=== PATIENT | male | born 1980 | race Caucasian/White ===

== ENCOUNTER 2019-08-21 05:43 | Emergency (ER) | payer OTHER ==
[~2019-08-21] VITALS: Ht 180.3 cm; Wt 81.6 kg
[2019-08-21 05:50] VITALS: BP 147/70
--- NOTE | 2019-08-21 05:50 | NUR ---
TO BED # 09 AMBULATORY
--- NOTE | 2019-08-21 06:01 | NUR ---
PT C/O LT ARM AND SHOULDER PAIN X3 DAY. NUMBNESS TO FINGERS X1 DAY. DENIES TRAUMA. +CMS. CAP REFILL <3 SEC. PT STATES PAIN RELIEF WHEN ARM IS RAISED ABOVE HEAD. SEEN AT [place] YESTERDAY AND DIAGNOSED WITH MUSCLE SPASM, PRESCRIBED METHOCARBAMOL AND NAPROXEN, PT STATES NO RELIEF AFTER USING MEDICATION. NO VISIBLE DEFORMITIES TO LT EXTREMITY. DENIES DRUG AND ALCOHOL USE. VSS. MEDHX: DENIES ALLERGIES: DENIES
[2019-08-21] MEDS ORDERED: KETOROLAC 30 MG/ML VIAL IM ONE (06:10)
--- NOTE | 2019-08-21 06:40 | NUR ---
DURING BLOOD DRAW PTS PUPILS DILATED, BECAME DIAPHORETIC, AND PALE. PT BECAME LETHARGIC, AROUSABLE TO NAME. MADE AWARE.
--- NOTE | 2019-08-21 06:42 | NUR ---
DR COLON AT BEDSIDE PERFORMING ULTRASOUND
--- NOTE | 2019-08-21 06:46 | NUR ---
XRAY AT BEDSIDE.
[2019-08-21 07:05] LABS: CARBON DIOXIDE 25.7 mmol/L (21-32); CREATININE 1.1 mg/dL (0.7-1.3); POTASSIUM 3.7 mmol/L (3.5-5.1)
--- NOTE | 2019-08-21 07:12 | NUR ---
SHIFT REPORT FORM EUNICE DONAHUE. ASSUMED CARE OF PT. PT RESTING IN BED.
[2019-08-21 07:14] LABS: HEMOGLOBIN 17.1 g/dL (12.0-18.0); MEAN CORPUSCULAR HEMOGLOBIN 32 pg (27-31); MEAN CORPUSCULAR HGB CONC 34 g/dL (33-37); MEAN CORPUSCULAR VOLUME 92.6 fL (80-94); PLATELET COUNT (AUTO) 246 K/uL (140-450); RED CELL DISTRIBUTION WIDTH 13.4 % (11.6-13.7)
[2019-08-21 07:27] LABS: LYMPHOCYTES % (MANUAL) 22 % (20-46); MONOCYTES % (MANUAL) 2 % (5-12)
--- NOTE | 2019-08-21 08:57 | NUR ---
PT RESTING IN BED, ABLE TO VISUALIZE RISE AND FALL OF THE CHEST. WILL CONTINUE TO MONITOR.
--- NOTE | 2019-08-21 09:00 | NUR ---
LAB AT BEDSIDE.
[2019-08-21 10:07] VITALS: BP 112/63
--- NOTE | 2019-08-21 10:08 | NUR ---
Patient discharged with v/s stable. Written and verbal after care instructions given and explained. Patient verbalized understanding. Ambulatory with steady gait. All questions addressed prior to discharge. Advised to follow up with PMD.
== END 2019-08-21 10:08 | disposition home or self-care (01) ==
LOC: MED 05:43
DX: M25.512 Pain in left shoulder (principal); R55 Syncope and collapse; R20.0 Anesthesia of skin; F17.210 Nicotine dependence, cigarettes, uncomplicated
CPT/HCPCS: 36415; 71045; 80048; 83735; 84484; 85025; 93005; 96372; 99284; J1885; Q0092